=== PATIENT | male | born 1975 | race Hispanic/Latino ===

== ENCOUNTER 2016-09-06 09:41 | Emergency (ER) | payer OTHER ==
[~2016-09-06] VITALS: Ht 177.8 cm; Wt 103.8 kg
[2016-09-06 09:43] VITALS: BP 132/74; PULSE 85; RESP 18; O2SAT 96
--- NOTE | 2016-09-06 10:29 | ED.REPORT ---
HPI-Neurologic Deficit Date of Service Sep 06, 2016 ED Provider: Daljit Lee MD The patient is a 40 year old male who presents to the emergency department complaining of right-sided facial numbness and weakness that began 4 days ago. He initially noticed a headache that began 1 week ago. A few days later he noticed numbness and weakness around his lip. Since onset this has progressed to the entire right side of his face. 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 He recently had a head CT that showed sinusitis and he was subsequently placed on antibiotics. Nursing Notes Stated Complaint: FACIAL NUMBNESS Chief Complaint: Neuro Symptoms/ Deficits Nursing Notes Reviewed: Yes Allergies: Coded Allergies: No Known Allergies (Unverified , 09/06/16) General Time Seen by Provider: 10:32 Chief Complaint Other (right-sided facial numbness and weakness) Hx Obtained From: Patient Arrived By: Walk-in Sudden in Onset?: Yes Onset Occurred: 1 week ago Symptom Duration: Since onset Progression Since Onset: Constant, Gradually worsening Location: : Head Severity: Current: Mild Severity: Maximum: Mild Recent Healthcare: No recent hospitalization, Recent doctor visit Similar Sx Previous: Yes Past Medical History Past Medical History Hx of Mosher's Palsy Family History Noncontributory Smoking History Unknown if Ever Smoker Ambulatory Status Independent Review of Systems Neurologic: Reports: Headache, Numbness (right-sided facial), Weakness Complete sys rev & neg: except as marked. Physical Exam Initial Vital Signs Vital Signs (First) Date Time Temp Pulse Resp B/P Pulse Ox O2 Delivery O2 Flow Rate FiO2 09/06/16 09:43 36.0 85 18 132/74 96 Initial VS: Reviewed ENT: Mucous membranes moist, Conjunctiva normal, No scleral icterus Neck: Supple, Non-tender, Full range of motion Extremities: Vascular intact, Neuro intact, No swelling, No tenderness Skin: Warm, Dry, No cyanosis Psychiatric: Mood/affect normal, Behavior normal, Normal thought content General/Constitutional: Awake, Alert Head / Eyes: Atraumatic, Normocephalic, PERRL, EOMI Respiratory / Chest: No respiratory distress Cardiovascular: Heart rate NL Neurologic: Oriented X3, Speech NL Moving all arms and legs normally. Decreased sensation on the right side of his face. Right-sided facial weakness that is consistent with Mosher's Palsy. Re-Eval/Medical Decision Source of Hx: Old records Re-Evaluation/Progress : Time of Eval: 10:50 Re-Evaluation/Progress Note: Discuss exam findings, diagnosis, and plan for discharge. Counseled Regarding: Diagnosis, Need for follow-up, When/why to return to ED Discharge & Departure Impression: Primary Impression: Mosher's palsy Disposition: Home Discharge Condition All VS Reviewed: Yes Condition: Stable Patient Instructions: Mosher's Palsy (ED) Additional Instructions: Thank you for entrusting us with your care today. Your symptoms are consistent with a Mosher's Palsy. Your symptoms will most likely resolve. I have prescribed you acyclovir (5 times daily for 7 days) and Prednisone (once daily for 5 days) . I also recommend finding an over the counter viscous eye drop solution to help prevent a corneal abrasion. Return to the emergency department for any new or concerning symptoms. Referrals: Joseph Tariq MD (Family) Scribe Attestation Portions of this note were transcribed by Thalia Jacinto. I, Dr. Lee personally performed the history, physical exam and medical decision-making; I reviewed and confirmed the accuracy of the information in the transcribed note. Signed by:Ariel Angeles, 09/06/2016and 1112. copies to: Joseph Tariq MD, Kirk H MD Sep 06, 2016 10:29 Thalia Jacinto Sep 06, 2016 10:35 reviewed and confirmed the accuracy of the information in the transcribed note. Signed by:Ariel Angeles, 09/06/2016and 1110. copies to: Joseph Tariq MD, Kirk H MD Sep 06, 2016 10:29 Thalia Jacinto Sep 06, 2016 10:35
[2016-09-06] MEDS ORDERED: PRE20 PO (11:20)
[2016-09-06] MEDS ORDERED: ZOV800 PO (11:20)
[2016-09-06 11:24] VITALS: PULSE 80; RESP 16; O2SAT 98
== END 2016-09-06 11:25 | disposition home or self-care (01) ==
LOC: SED 09:41
DX: G51.0 Bell's palsy (principal)